=== PATIENT | female | born 1995 | race Caucasian/White ===

== ENCOUNTER 2021-07-13 13:30 | Emergency (ER) | payer OTHER, SELFPAY ==
[~2021-07-13] VITALS: Ht 160 cm; Wt 57.2 kg
[2021-07-13 13:44] VITALS: BP 130/77
[2021-07-13] MEDS ORDERED: PSEU120T23 PO (13:54)
[2021-07-13] MEDS ORDERED: AZIT250T4 PO (13:54)
[2021-07-13] MEDS ORDERED: PROM118S5 PO (13:54)
--- NOTE | 2021-07-13 13:57 | NUR ---
donna ans strep swabs done. walked to lab.
--- NOTE | 2021-07-13 14:12 | NUR ---
NO NURSING INTERVENTIONS, NO COMPLETE ASSESSMENT NEEDED.
[2021-07-13 14:13] VITALS: BP 130/77
--- NOTE | 2021-07-13 14:13 | NUR ---
Patient discharged with v/s stable. Written and verbal after care instructions given [id number] and explained. Patient alert, oriented and verbalized understanding of instructions. Ambulatory with steady gait. All questions addressed prior to discharge. ID band removed. Patient advised to follow up with PMD. Rx of AZITHROMYCIN 250MH PO DAILY, PROMETHAZINE 250MG PO BID, AND PSEUDOEPHEDRINE 5Ml PRN COUGH given. Patient educated on indication of medication including possible reaction and side effects. Opportunity to ask questions provided and answered.
== END 2021-07-13 14:13 | disposition home or self-care (01) ==
LOC: MED 13:30
DX: J35.1 Hypertrophy of tonsils (principal); Z20.822 Contact with and (suspected) exposure to COVID-19; J02.9 Acute pharyngitis, unspecified; R09.81 Nasal congestion; R50.9 Fever, unspecified; M79.18 Myalgia, other site; Z79.2 Long term (current) use of antibiotics; Z79.899 Other long term (current) drug therapy
CPT/HCPCS: 87081; 99283